=== PATIENT | male | born 1980 | race Caucasian/White ===

== ENCOUNTER 2017-01-29 21:02 | Emergency (ER) | payer SELFPAY ==
[~2017-01-29] VITALS: Ht 167.6 cm; Wt 97.5 kg
[2017-01-29 21:13] VITALS: BP 126/89
--- NOTE | 2017-01-30 01:10 | NUR ---
PATIENT LEFT WITHOUT BEING SEEN BY DR. HAJI. NO FURTHER CARE PROVIDED FOR PATIENT.
== END 2017-01-30 01:10 | disposition left against medical advice (07) ==
LOC: MED 21:02
DX: H92.02 Otalgia, left ear (principal); Z53.21 Procedure and treatment not carried out due to patient leaving prior to being seen by health care provider